=== PATIENT | female | born 1955 | race Two or more races ===

== ENCOUNTER → 2020-04-16 09:46 | Outpatient (CLI) | payer OTHER | END | disposition home or self-care (01) | LOC: LAB 09:46 | PROVIDERS: ATTEND Specialist/Technologist, Other Nephrology | DX: Z20.828 Contact with and (suspected) exposure to other viral communicable diseases (principal); N18.3 Chronic kidney disease, stage 3 (moderate); E11.21 Type 2 diabetes mellitus with diabetic nephropathy; N30.00 Acute cystitis without hematuria; E78.49 Other hyperlipidemia; N20.0 Calculus of kidney; E03.0 Congenital hypothyroidism with diffuse goiter ==

== ENCOUNTER 2020-09-25 14:39 | Inpatient (IN) | payer OTHER ==
[~2020-09-25] VITALS: Ht 160 cm; Wt 90.7 kg
[2020-09-26] MEDS ORDERED: NAPROXEN500 MG (10:05)
[2020-09-26] MEDS ORDERED: LEVOTHYROXINE50 MCG (10:05)
[2020-09-26] MEDS ORDERED: PANTOPRAZOLE SO40 MG (10:05)
== END 2020-09-29 23:03 | disposition home or self-care (01) | DRG 841 ==
LOC: SURH 14:39 → SEC-K 14:39 → SURH 16:16
PROVIDERS: ADMIT Internal Medicine Cardiovascular Disease; ATTEND Internal Medicine Cardiovascular Disease
PROC: 07DR3ZX Extraction of Iliac Bone Marrow, Percutaneous Approach, Diagnostic (ICD-10-PCS; principal; 2020-09-26)
DX: C83.33 Diffuse large B-cell lymphoma, intra-abdominal lymph nodes (principal); D61.818 Other pancytopenia; D69.59 Other secondary thrombocytopenia; Q96.9 Turner's syndrome, unspecified; E03.9 Hypothyroidism, unspecified; E86.0 Dehydration
CPT/HCPCS: 240

== ENCOUNTER 2020-10-06 15:39 | Inpatient (IN) | payer OTHER ==
[~2020-10-06] VITALS: Ht 149.9 cm; Wt 90.7 kg
[~2020-10-06 15:39] MED LIST: LEVOTHYROXINE50 MCG; NAPROXEN500 MG; PANTOPRAZOLE SO40 MG
[2020-10-07] MEDS ORDERED: MEGESTROL ACETA40 MG (08:00)
[2020-10-07] MEDS ORDERED: DEXAMETHASONE4 MG (08:00)
== END 2020-10-11 16:14 | disposition designated cancer center or children's hospital (05) | DRG 842 ==
LOC: SEC-K 15:39 → SURH 15:39
PROVIDERS: ADMIT Internal Medicine Cardiovascular Disease; ATTEND Internal Medicine Cardiovascular Disease
PROC: 02HV33Z Insertion of Infusion Device into Superior Vena Cava, Percutaneous Approach (ICD-10-PCS; principal; 2020-10-06)
PROC: 3E04305 Introduction of Other Antineoplastic into Central Vein, Percutaneous Approach (ICD-10-PCS; 2020-10-06)
PROC: B54MZZZ Ultrasonography of Right Upper Extremity Veins (ICD-10-PCS; 2020-10-09)
DX: C85.18 Unspecified B-cell lymphoma, lymph nodes of multiple sites (principal); D63.0 Anemia in neoplastic disease; E86.0 Dehydration; D69.6 Thrombocytopenia, unspecified; I10 Essential (primary) hypertension
CPT/HCPCS: 240